=== PATIENT | female | born 1980 | race Caucasian/White ===

== ENCOUNTER 2024-08-11 10:32 | Observation (INO) ==
[2024-08-11 12:00] LABS: Basophils # (Auto) 0.02 K/mcL (0.00-0.30); Basophils % (Auto) 0.1 % (0.0-2.0); Eosinophils # (Auto) 0 K/mcL (0.00-0.70); Eosinophils % (Auto) 0 % (0.0-7.0); Hematocrit 41.6 % (34.1-44.9); Hemoglobin 13.7 g/dL (11.2-15.7); Lymphocytes # (Auto) 2.18 K/mcL (1.50-4.80); Lymphocytes % (Auto) 13.6 % (15.5-49.0); Mean Cell Volume 93.1 fL (80.0-100.0); Mean Corpuscular HGB Conc 32.9 g/dL (31.0-36.0); Mean Platelet Volume 9.9 fL (8.8-12.5); Monocytes # (Auto) 0.59 K/mcL (0.10-0.90); Monocytes % (Auto) 3.7 % (1.0-12.0); Neutrophils % (Auto) 82.3 % (38.0-78.0); Platelet Count 367 K/mcL (140-440); RBC 4.47 M/mcL (3.59-5.38); Red Cell Distribution Width 12.6 % (11.5-14.5)
[2024-08-11] MEDS: ONDANSETRON 4 MG/2 ML VIAL IV ONE (12:16)
[2024-08-11] MEDS: morphine 4 MG/ML VIAL IV ONE (12:16)
[2024-08-11 12:26] LABS: ALT/SGPT 18 U/L (<40); AST/SGOT 26 U/L (<32); Albumin/Globulin Ratio 1.9 (1.0-2.3); Alkaline Phosphatase 66 U/L (39-117); Bilirubin,Total 0.4 mg/dL (0.1-1.0); Blood Urea Nitrogen 20 mg/dL (6-20); Carbon Dioxide 24 mmol/L (22-30); Chloride 104 mmol/L (96-108); Globulin 2.7 gm/dL (2.2-3.7); Glomerular Filtration Rate 50; Glucose 130 mg/dL (70-105); Potassium 3.7 mmol/L (3.3-5.1); Sodium 142 mmol/L (133-145)
[2024-08-11] MEDS: PROCHLORPERAZINE 10 MG/2 ML VIAL IV ONE ×2 (12:37→14:32)
[2024-08-11] MEDS: HYDROmorphone 0.5 MG/0.5 ML SYRINGE IV ONE (14:32)
[2024-08-11] MEDS: PIPERACILLIN SODIUM/TAZOBACTAM 3.375 GM in DEXTROSE 5% IN WATER 50 ML IV ONE (15:21)
[2024-08-11] MEDS: SULFAMETHOXAZOLE/TRIMETHOPRIM 1 TABLET PO ONE (15:27)
[2024-08-11] MEDS: AMOXICILLIN/POTASSIUM CLAV 875 MG TABLET PO ONE (15:27)
[2024-08-11] MEDS ORDERED: IPRATROPIUM/ALBUTEROL 3 ML AMPUL.NEB NEB PRN (17:46)
[2024-08-11] MEDS ORDERED: traZODone HCL 50 MG TABLET PO PRN (17:46)
[2024-08-11] MEDS ORDERED: ACETAMINOPHEN 325 MG TABLET PO PRN (17:46)
[2024-08-11] MEDS: HYDROmorphone 1 MG/ML SYRINGE IV PRN (18:04)
[2024-08-11] MEDS: ONDANSETRON 4 MG/2 ML VIAL IV PRN (18:05)
[2024-08-11] MEDS: 0.9 % SODIUM CHLORIDE 1,000 ML IV SCH (18:11)
[2024-08-11] MEDS ORDERED: SUMAtriptan SUCCINATE 50 MG TABLET PO PRN (19:00)
[2024-08-11] MEDS: PIPERACILLIN SODIUM/TAZOBACTAM 3.375 GM in DEXTROSE 5% IN WATER 50 ML IV SCH (19:14)
[2024-08-11] MEDS: OMEPRAZOLE 20 MG CAPSULE PO SCH (19:15)
[2024-08-11] MEDS: SENNOSIDES 1 TABLET PO SCH (20:41)
[2024-08-11] MEDS: DOCUSATE SODIUM 100 MG CAPSULE PO SCH (20:41)
[2024-08-11] MEDS: HEPARIN 5,000 UNIT/ML VIAL SQ SCH (20:41)
[2024-08-11] MEDS: 0.9 % SODIUM CHLORIDE 10 ML SYRINGE IV SCH (20:42)
[2024-08-11] MEDS: PIPERACILLIN SODIUM/TAZOBACTAM 4.5 GM in DEXTROSE 5% IN WATER 100 ML IV SCH (23:26)
[2024-08-12] MEDS: oxyCODONE IR 5 MG TABLET PO PRN (03:55)
[2024-08-12] MEDS: KETOROLAC 30 MG/ML VIAL IV PRN (03:55)
[2024-08-12 06:07] LABS: Basophils # (Auto) 0.06 K/mcL (0.00-0.30); Basophils % (Auto) 0.5 % (0.0-2.0); Eosinophils # (Auto) 0.18 K/mcL (0.00-0.70); Eosinophils % (Auto) 1.4 % (0.0-7.0); Hematocrit 34.9 % (34.1-44.9); Hemoglobin 11.3 g/dL (11.2-15.7); Lymphocytes # (Auto) 5.06 K/mcL (1.50-4.80); Lymphocytes % (Auto) 39.2 % (15.5-49.0); Mean Cell Volume 96.1 fL (80.0-100.0); Mean Corpuscular HGB Conc 32.4 g/dL (31.0-36.0); Mean Platelet Volume 9.8 fL (8.8-12.5); Monocytes # (Auto) 0.95 K/mcL (0.10-0.90); Monocytes % (Auto) 7.4 % (1.0-12.0); Neutrophils % (Auto) 51.3 % (38.0-78.0); Platelet Count 293 K/mcL (140-440); RBC 3.63 M/mcL (3.59-5.38); Red Cell Distribution Width 12.7 % (11.5-14.5); WBC 12.9 K/mcL (4.5-11.0)
[2024-08-12 06:36] LABS: ALT/SGPT 14 U/L (<40); AST/SGOT 24 U/L (<32); Albumin 3.9 gm/dL (3.2-5.2); Albumin/Globulin Ratio 2.1 (1.0-2.3); Alkaline Phosphatase 51 U/L (39-117); Bilirubin,Total < 0.2 mg/dL (0.1-1.0); Blood Urea Nitrogen 16 mg/dL (6-20); Calcium 8.5 mg/dL (8.6-10.4); Carbon Dioxide 25 mmol/L (22-30); Chloride 108 mmol/L (96-108); Globulin 1.9 gm/dL (2.2-3.7); Glomerular Filtration Rate 68; Glucose 93 mg/dL (70-105); Potassium 3.5 mmol/L (3.3-5.1); Sodium 143 mmol/L (133-145)
[2024-08-12] MEDS: NORTRIPTYLINE 50 MG PO SCH (10:04)
[2024-08-12] MEDS: NICOTINE 21 MG PATCH TOPICAL SCH (10:58)
[2024-08-12] MEDS: NORTRIPTYLINE 25 MG CAPSULE PO SCH (21:05)
[2024-08-13 06:32] LABS: Basophils # (Auto) 0.04 K/mcL (0.00-0.30); Basophils % (Auto) 0.5 % (0.0-2.0); Eosinophils # (Auto) 0.42 K/mcL (0.00-0.70); Hematocrit 34.6 % (34.1-44.9); Lymphocytes # (Auto) 3.03 K/mcL (1.50-4.80); Lymphocytes % (Auto) 35.9 % (15.5-49.0); Mean Cell Volume 96.4 fL (80.0-100.0); Mean Corpuscular HGB Conc 31.8 g/dL (31.0-36.0); Mean Platelet Volume 10.3 fL (8.8-12.5); Monocytes # (Auto) 0.63 K/mcL (0.10-0.90); Monocytes % (Auto) 7.5 % (1.0-12.0); Neutrophils % (Auto) 50.9 % (38.0-78.0); Platelet Count 266 K/mcL (140-440); RBC 3.59 M/mcL (3.59-5.38); Red Cell Distribution Width 12.3 % (11.5-14.5); WBC 8.4 K/mcL (4.5-11.0)
[2024-08-13 06:43] LABS: ALT/SGPT 13 U/L (<40); AST/SGOT 19 U/L (<32); Albumin 3.5 gm/dL (3.2-5.2); Albumin/Globulin Ratio 1.8 (1.0-2.3); Alkaline Phosphatase 48 U/L (39-117); Bilirubin,Direct < 0.2 mg/dL (0-0.3); Bilirubin,Total 0.2 mg/dL (0.1-1.0); Blood Urea Nitrogen 14 mg/dL (6-20); Calcium 8.7 mg/dL (8.6-10.4); Carbon Dioxide 24 mmol/L (22-30); Chloride 108 mmol/L (96-108); Globulin 1.9 gm/dL (2.2-3.7); Glomerular Filtration Rate 61; Glucose 92 mg/dL (70-105); Lactate Dehydrogenase 145 U/L (135-225); Phosphorous 3.9 mg/dL (2.5-4.5); Potassium 3.7 mmol/L (3.3-5.1); Sodium 143 mmol/L (133-145); Triglycerides 120 mg/dL (<150); Uric Acid 3.9 mg/dL (2.5-8.0)
[2024-08-13] MEDS: FLUoxetine HCL 20 MG CAPSULE PO SCH (08:38)
[2024-08-13] MEDS: CIPROFLOXACIN 500 MG TABLET PO SCH (10:05)
[2024-08-13] MEDS: metroNIDAZOLE 500 MG TABLET PO SCH (14:13)
== END 2024-08-13 16:20 | disposition home or self-care (01) ==
LOC: ED 10:32 → MEDSUR 10:32
PROVIDERS: ADMIT Internal Medicine; ATTEND Internal Medicine